=== PATIENT | female | born 1940 | race Caucasian/White ===

== ENCOUNTER 2024-08-02 18:54 | Emergency (ER) | payer MEDICARE, SELFPAY ==
[2024-08-02] VITALS (12 sets, daily range): BP systolic 127–180; BP diastolic 68–84; PULSE 68–78; RESP 13–22; TEMP 36.9; O2SAT 95–98; BMI 25.9
--- NOTE | 2024-08-02 19:00 | ECG_ITS ---
[email or web address] Test Date: 2024-08-02 Pat Name: Emani Arellano Department: Room: Gender: Female Director Supply [employer]: : 1940 Requested By: Jeff Ly Order Number: [id number] Aleida MD: RUDDY MICHAEL Measurements Intervals [place] Rate: 71 P: 71 AR: 106 QRS: -61 QRSD: 117 T: 83 QT: 418 QTc: 457 Interpretive Statements SINUS RHYTHM WITH SINUS ARRHYTHMIA WITH SHORT AR INTERVAL PATTERN CONSISTENT WITH PULMONARY DISEASE LEFT ANTERIOR FASCICULAR BLOCK [QRS AXIS <= -45, QR IN I, RS IN II] LEFT VENTRICULAR HYPERTROPHY AND ST-T CHANGE [VOLTAGE CRITERIA PLUS ST/T ABNORMALITY] No previous ECG available for comparison Electronically Signed On 08-04-2024 20:59:37 CDT by RUDDY MICHAEL [email or web address]
--- NOTE | 2024-08-02 19:20 | XRR_ITS ---
PROCEDURE INFORMATION: Exam: XR Chest Exam date and time: 08/02/2024 7:40 PM Age: 83 years old Clinical indication: Pain; Chest pressure; Additional info: Chest pain; Afib; Fluid retention TECHNIQUE: Imaging protocol: Radiologic exam of the chest. Views: 1 view. COMPARISON: No relevant prior studies available. FINDINGS: Lungs: Mild left lower lung zone and right basilar linear atelectasis versus scarring. No consolidation. Pleural spaces: No substantial pleural effusion or pneumothorax. Heart/Mediastinum: Unremarkable. No cardiomegaly. Vasculature: Aortic arch atherosclerotic calcification. Diaphragm: Mild asymmetric elevation of the right hemidiaphragm. Bones/joints: Degenerative changes along the spine and shoulders. XR/XR chest 1V portable [id number] IMPRESSION: No acute findings.
[2024-08-02 19:44] LABS: Basophils # 0.1 10^3/uL (0.0-0.1); Basophils % 0.7 %; Eosinophils # 0.1 10^3/uL (0.0-0.8); Eosinophils % 1.6 %; Hematocrit 43.4 % (36-47); Lymphocytes # 1.1 10^3/uL (0.8-4.8); Lymphocytes % 13.7 %; Mean Corpuscular HGB Conc 29.7 g/dL (30-55); Mean Corpuscular Hemoglobin 25.5 pg (27-33); Mean Corpuscular Volume 85.9 fl (85-98); Mean Platelet Volume 10.7 fL (7.4-10.4); Monocytes # 0.5 10^3/uL (0.2-0.9); Monocytes % 6.2 %; Neutrophils # 6.41 10^3/uL (1.8-7.7); Neutrophils % 77.6 %; Nucleated Red Blood Cells % 0 %; Platelet Count 171 10^3/cmm (157-399); Red Blood Count 5.05 10^6/uL (3.85-5.65); Red Cell Distribution Width 19.9 % (12.1-15.1); White Blood Count 8.26 10^3/uL (3.29-11.43)
[2024-08-02 20:03] LABS: Troponin(5th) Baseline 79 ng/L (0-10)
[2024-08-02 20:16] LABS: Alanine Aminotransferase 17 U/L (0-33); Albumin Level 4.1 g/dL (3.5-5.2); Alkaline Phosphatase 75 U/L (35-105); Anion Gap 18.9 (5-19); Aspartate Amino Transferase 29 U/L (0-32); Blood Urea Nitrogen 25 mg/dL (8-23); Calcium 9.7 mg/dL (8.5-10.5); Carbon Dioxide 30 mmol/L (22-29); Chloride 97 mmol/L (98-107); Globulin 2.6 g/dL (1.3-4.6); Glucose 158 mg/dL (65-115); NT Pro B Type Natriuretic Pept 477 pg/mL (0-450); Osmolality Calculated 302 mOsm/kg (285-295); Potassium 3.9 mmol/L (3.5-5.1); Sodium 142 mmol/L (136-145); Total Bilirubin 0.5 mg/dL (0.15-1.2); Total Protein 6.7 g/dL (6.6-8.7)
--- NOTE | 2024-08-02 20:21 | W.ED.CHESTPA ---
HPI - Chest Pain General: Chief Complaint: Chest Pain Stated Complaint: CP Time Seen by Provider: 08/02/24 19:38 History of Present Illness: 83-year-old female with a history of atrial fibrillation. She presents after a brief episode of chest pain while walking the track. She noticed that her oxygen condenser was on 5 L instead of her normal 1. She turned it down. Pain was resolved on her arrival here after 20 to 30 minutes. No intervention. She does not have a history of coronary disease, at least known. She is recently here from [place]. Related Data Allergies Allergy/AdvReac Type Severity Reaction Status Date / Time codeine Allergy ALGY-Anaphy Verified 08/02/24 19:06 laxis Physical Exam Const: COMMON NORMALS: no acute distress GENERAL APPEARANCE: cooperative; not ill appearing and not frail appearing HENMT: COMMON NORMALS: normocephalic, atraumatic and Normal external nose present HEAD & SCALP: normocephalic and atraumatic FACE & SINUS: normal facial exam and face symmetric NOSE: Normal external nose present Eye: COMMON NORMALS: Equal, round and reactive pupils present and EOMs intact bilaterally PUPIL: Yes Equal, round and reactive pupils present Neck/C-Spine: GENERAL: Yes trachea midline Chest: CHEST: Yes Symmetrical chest wall rise Resp: COMMON NORMALS: normal respiratory effort, No retractions, No use of accessory muscles and clear to auscultation bilaterally AUSCULTATION: clear to auscultation bilaterally Cardio: COMMON NORMALS: regular rate and regular rhythm RATE: regular rate RHYTHM: regular rhythm GI: COMMON NORMALS: Normal to inspection, nondistended, normoactive bowel sounds present Extremity: COMMON NORMALS: no pedal edema Neuro: DERIK COMA SCALE: document GCS findings Derik coma scale eye opening: Spontaneous Derik coma scale verbal response: Orientated Derik coma scale motor response: Obey commands [place] coma scale total score: 15 SENSORY EXAM: Yes extremities (intact) Psych: COMMON NORMALS: speech normal SPEECH: Yes normal speech Skin: COMMON NORMALS: no rashes or lesions noted GENERAL SKIN EXAM: no rashes or lesions noted Course Vital Signs: Vital signs: Vital Signs Temperature 98.5 F 08/02/24 18:56 Pulse Rate 70 08/02/24 23:10 Respiratory Rate 18 08/02/24 22:00 Blood Pressure 127/70 08/02/24 23:10 Pulse Oximetry 97 08/02/24 23:10 Oxygen Delivery Me thod Nasal Cannula 08/02/24 18:56 Oxygen Flow Rate 1 08/02/24 18:56 MDM - Chest Pain Medical Decision Making Chest pain has resolved. Troponin did not rise at 2 hours. Delta is -2.4. CBC is normal. BMP is not remarkable. Chest x-ray is nonacute. With resolution of her symptoms on their own, she will be allowed discharge. She knows to return for any return of her symptoms at all. As she is new to [facility], we will ask case management to get her a follow-up appointment with the PCP. Lab Data 08/02/24 19:37 08/02/24 19:37 Radiology Impressions Chest X-Ray 08/02/24 19:20 IMPRESSION: No acute findings. Laboratory Results WBC 8.26 10^3/uL (3.29-11.43) 08/02/24 19:37 RBC 5.05 10^6/uL (3.85-5.65) 08/02/24 19:37 Hgb 12.90 g/dL (11.27-16.99) 08/02/24 19:37 Hct 43.4 % (36-47) 08/02/24 19:37 MCV 85.9 fl (85-98) 08/02/24 19:37 MCH 25.5 pg (27-33) L 08/02/24 19:37 MCHC 29.7 g/dL (30-55) L 08/02/24 19:37 RDW 19.9 % (12.1-15.1) H 08/02/24 19:37 Plt Count 171 10^3/cmm (157-399) 08/02/24 19:37 MPV 10.7 fL (7.4-10.4) H 08/02/24 19:37 Neut % (Auto) 77.6 % 08/02/24 19:37 Lymph % (Auto) 13.7 % 08/02/24 19:37 [place] % (Auto) 6.2 % 08/02/24 19:37 Eos % (Auto) 1.6 % 08/02/24 19:37 Baso % (Auto) 0.7 % 08/02/24 19:37 Neut # (Auto) 6.41 10^3/uL (1.8-7.7) 08/02/24 19:37 Lymph # (Auto) 1.1 10^3/uL (0.8-4.8) 08/02/24 19:37 [place] # (Auto) 0.5 10^3/uL (0.2-0.9) 08/02/24 19:37 Eos # (Auto) 0.1 10^3/uL (0.0-0.8) 08/02/24 19:37 Baso # (Auto) 0.1 10^3/uL (0.0-0.1) 08/02/24 19:37 Nucleated RBC % (auto) 0 % 08/02/24 19:37 Nucleated RBCs # 0.0 /100WBC 08/02/24 19:37 Sodium 142 mmol/L (136-145) 08/02/24 19:37 Potassium 3.9 mmol/L (3.5-5.1) 08/02/24 19:37 Chloride 97 mmol/L (98-107) L 08/02/24 19:37 Carbon Dioxide 30 mmol/L (22-29) H 08/02/24 19:37 Anion Gap 18.9 (5-19) 08/02/24 19:37 BUN 25 mg/dL (8-23) H 08/02/24 19:37 Creatinine 0.9 mg/dL (0.5-0.9) 08/02/24 19:37 GFR Calculation Not Reportable 08/02/24 19:37 Glucose 158 mg/dL (65-115) H 08/02/24 19:37 Calculated Osmolality 302 mOsm/kg (285-295) H 08/02/24 19:37 Calcium 9.7 mg/dL (8.5-10.5) 08/02/24 19:37 Total Bilirubin 0.5 mg/dL (0.15-1.2) 08/02/24 19:37 AST 29 U/L (0-32) 08/02/24 19:37 ALT 17 U/L (0-33) 08/02/24 19:37 Alkaline Phosphatase 75 U/L (35-105) 08/02/24 19:37 Troponin T Baseline 79 ng/L (0-10) H 08/02/24 19:37 Troponin T 120 Minute 76.61 ng/L (0-10) H 08/02/24 21:07 Delta Troponin T -2.39 ABS# (0-10) L 08/02/24 21:07 NT-Pro-B Natriuret Pep 477 pg/mL (0-450) H 08/02/24 19:37 Total Protein 6.7 g/dL (6.6-8.7) 08/02/24 19:37 Albumin 4.1 g/dL (3.5-5.2) 08/02/24 19:37 Globulin 2.6 g/dL (1.3-4.6) 08/02/24 19:37 All radiology interpretation(s) finalized by discharge Discharge Plan Discharge Patient Disposition: Home Clinical Impression: Chest pain, Atrial fibrillation Condition: Stable Discharge Orders: Discharge ED (Routine); Ordered 08/02/24 Ordered By: Jeff Flanagan Patient Instructions: A-fib (Atrial Fibrillation) (ED), Chest Pain (ED), Opioid Safety, Pain Management Activity Restrictions/Additional Instructions: Return to the emergency department for any return of your chest discomfort, or any new symptoms such as shortness of breath, fever, lethargy, etc. Case management will give you a call next week to help you find a primary care physician to follow-up with. Print Language: [place] Coding Level of Care Code ED Slip Filler for Timothy Jack
--- NOTE | 2024-08-02 21:21 | ECG_ITS ---
[employer] Test Date: 2024-08-02 Pat Name: Emani Arellano Department: Room: Gender: Female Velvet [employer]: : 1940 Requested By: Jeff Ly Order Number: [id number] Reading MD: RUDDY MICHAEL Measurements Intervals [place] Rate: 72 P: 24 SD: 128 QRS: -48 QRSD: 121 T: 82 QT: 418 QTc: 459 Interpretive Statements SINUS RHYTHM WITH MARKED SINUS ARRHYTHMIA LEFT ANTERIOR FASCICULAR BLOCK [QRS AXIS <= -45, QR IN I, RS IN II] LEFT VENTRICULAR HYPERTROPHY AND ST-T CHANGE [VOLTAGE CRITERIA PLUS ST/T ABNORMALITY] Compared to ECG 08/02/2024 19:00:49 Short SD interval no longer present ST (T wave) deviation still present Electronically Signed On 08-04-2024 21:01:18 CDT by RUDDY MICHAEL [email or web address]
[2024-08-02 21:30] LABS: Troponin 5 2HR 76.61 ng/L (0-10)
[2024-08-02 21:32] LABS: Troponin 5 2HR Delta -2.39 ABS# (0-10)
--- NOTE | 2024-08-04 09:44 | DCPLANNER ---
messaged [facility] to establish PCP
== END 2024-08-02 23:11 | disposition home or self-care (01) ==
PROVIDERS: Emergency Provider Emergency Medicine
DX: R07.9 Chest pain, unspecified (principal); I48.91 Unspecified atrial fibrillation
CPT/HCPCS: 36415; 71045; 80053; 83880; 84484; 85025; 93005; 99285

== ENCOUNTER → 2024-10-13 14:44 | Outpatient (BNVA) | payer MEDICARE, SELFPAY | PROVIDERS: PCP Family Medicine; Visit Provider Internal Medicine | DX: I48.91 Unspecified atrial fibrillation (principal); Z79.82 Long term (current) use of aspirin; R06.09 Other forms of dyspnea; R06.02 Shortness of breath; R07.9 Chest pain, unspecified | CPT/HCPCS: 99204 ==

== ENCOUNTER 2024-12-29 10:05 | Outpatient (CLI) | payer MEDICARE, SELFPAY ==
--- NOTE | 2024-12-29 10:00 | USCV_ITS ---
Adan Emani Age: 84 Gender: F : 1940 Exam Date: 12/29/2024 10:17 Ordering Phys: Jabari Gautam M.D ([email or web address]) Technologist: ELSA Exam Location: [facility] [place] Indication: CP, SoB BP: 132 / 70 HR: 61 Rhythm: Sinus Technical Quality: Adequate MEASUREMENTS (Male / Female) Normal Values 2D ECHO LV Diastolic Diameter PLAX 3.9 cm 4.2 - 5.9 / 3.9 - 5.3 cm IVS Diastolic Thickness 1.1 cm 0.6 - 1.0 / 0.6 - 0.9 cm IVS Systolic Thickness 2.0 cm LVPW Diastolic Thickness 1.5 cm 0.6 - 1.0 / 0.6 - 0.9 cm LVPW Systolic Thickness 1.8 cm LVOT Diameter 2.0 cm LV Ejection Fraction 2D Teich 58.1 % LV Ejection Fraction MOD 4C 65.1 % LV Ejection Fraction MOD 2C 63.0 % LV Ejection Fraction 2C AL 63.0 % LA Diameter 4.0 cm RA Systolic Volume 4C AL 25.3 ml RA Systolic Volume 4C MOD 25.7 ml LA Sys Volume AL 52.0 cm cubed LA Sys Volume Index AL 33.1 cm cubed/m squared Aorta at Sinotubular Diameter 2.5 cm IVC Diameter 1.3 cm M-MODE LA Ao Ratio MM 1.8 AV Cusp Separation MM 1.3 cm DOPPLER AV Peak Velocity 179.3 cm/s LVOT Peak Velocity 79.0 cm/s AV Area Cont Eq vti 1.6 cm squared AV Area Cont Eq pk 1.4 cm squared MV Peak Velocity 104.0 cm/s MV Area PHT 4.2 cm squared Mitral E to A Ratio 0.7 TR Peak Velocity 156.0 cm/s TR Peak Gradient 9.7 mmHg TV Peak E Velocity 56.0 cm/s PV Peak Velocity 88.0 cm/s FINDINGS Left Ventricle Normal left ventricular size and systolic function, EF 55-60%. No regional wall motion abnormalities. Grade 1 diastolic dysfunction. Mild left ventricular hypertrophy. Right Ventricle Normal in size and function Right Atrium Normal in size Left Atrium Normal in size Mitral Valve Mild mitral annular calcification. Mild mitral regurgitation Aortic Valve Thickened aortic valve. No significant stenosis or regurgitation Tricuspid Valve Insufficient TR jet to calculate RVSP Pulmonic Valve Not well visualized Pericardium Normal Aorta Normal in size IVC Appears to be normal CONCLUSIONS LV systolic function is normal with EF of 55-60%. Grade 1 diastolic dysfunction Mild mitral regurgitation Jabari Gautam MD (Electronically Signed) Final Date: 05 January 2025 22:18 S
== END 2024-12-29 10:06 | disposition home or self-care (01) ==
LOC: RAD 10:06
PROVIDERS: PCP Family Medicine; Visit Provider Internal Medicine
DX: R07.9 Chest pain, unspecified (principal); R06.02 Shortness of breath; I50.30 Unspecified diastolic (congestive) heart failure; I35.0 Nonrheumatic aortic (valve) stenosis; I35.9 Nonrheumatic aortic valve disorder, unspecified; I36.1 Nonrheumatic tricuspid (valve) insufficiency; I34.81 Nonrheumatic mitral (valve) annulus calcification; I34.0 Nonrheumatic mitral (valve) insufficiency
CPT/HCPCS: 93306

== ENCOUNTER → 2025-02-19 15:46 | Outpatient (BNVA) | payer MEDICARE, OTHER, SELFPAY | PROVIDERS: PCP Family Medicine; Visit Provider Internal Medicine | DX: I48.91 Unspecified atrial fibrillation (principal) | CPT/HCPCS: 99214 ==